=== PATIENT | female | born 1995 | race Caucasian/White ===

== ENCOUNTER 2021-08-07 17:00 | Emergency (ER) | payer OTHER ==
[~2021-08-07] VITALS: Ht 175.3 cm; Wt 86.2 kg
--- NOTE | 2021-08-07 18:20 | NUR ---
Pt was brought to room 5A and left before being seen. Pt stated "I have to get going". Pt was given referrals for rehab/detox centers as requested by pt.
== END 2021-08-07 18:22 | disposition left against medical advice (07) ==
LOC: ER 17:05
DX: Z53.21 Procedure and treatment not carried out due to patient leaving prior to being seen by health care provider (principal)

== ENCOUNTER 2023-10-08 21:36 | Emergency (ER) | payer OTHER ==
[~2023-10-08] VITALS: Ht 172.7 cm; Wt 76.7 kg
[2023-10-08] MEDS ORDERED: CLINDAMYCIN 900MG/D5W 100ML IVPB **ER PYXIS ONLY IJ ONE (22:20)
[2023-10-08] MEDS ORDERED: HYDROCODONE/APAP 10-325 MG TABLET ONE (22:21)
[2023-10-08] MEDS ORDERED: ONDANSETRON 4 MG/2 ML VIAL ONE (22:21)
[2023-10-08] MEDS: HYDROCODONE/APAP 10-325 MG TABLET PO ONE (22:25)
[2023-10-08] MEDS: ONDANSETRON 4 MG/2 ML VIAL IV ONE (22:35)
[2023-10-08] MEDS: CLINDAMYCIN PHOSPHATE IV 900 MG in IV DEXTROSE 5% 100 ML IV ONE (22:35)
[2023-10-08 22:44] LABS: BASOPHILS # (AUTO) 0.1 K/UL (0.0-0.2); BASOPHILS % (AUTO) 0.7 % (0.0-2.0); EOSINOPHILS # (AUTO) 0.2 K/uL (0.0-0.7); EOSINOPHILS % (AUTO) 3.2 % (0.0-7.0); HEMATOCRIT 28.3 % (31.2-41.9); HEMOGLOBIN 8.9 g/dL (10.9-14.3); LYMPHOCYTES # (AUTO) 1.7 K/uL (0.8-4.8); LYMPHOCYTES % (AUTO) 22.4 % (20.5-51.5); MEAN CORPUSCULAR HEMOGLOBIN 20.3 uug (24.7-32.8); MEAN CORPUSCULAR HGB CONC 31 g/dL (32.3-35.6); MEAN CORPUSCULAR VOLUME 64.6 fL (75.5-95.3); MONOCYTES # (AUTO) 0.6 K/uL (0.1-1.30); MONOCYTES % (AUTO) 8.3 % (0.0-11.0); NEUTROPHILS # (AUTO) 4.9 K/uL (1.8-8.9); NEUTROPHILS % (AUTO) 65.4 % (38.5-71.5); PLATELET COUNT (AUTO) 345 K/uL (179-408); RED BLOOD CELL COUNT(AUTO) 4.39 MIL/uL (3.63-4.92); RED CELL DISTRIBUTION WIDTH 20.6 % (12.3-17.7); WHITE BLOOD COUNT (AUTO) 7.5 K/uL (3.8-11.8)
[2023-10-08 22:49] LABS: DIFFERENTIAL COMMENT 1
[2023-10-08 22:58] LABS: CALCIUM 8.1 mg/dL (8.5-10.1); CREATININE 0.8 mg/dL (0.6-1.3); POTASSIUM 3.6 mmol/L (3.5-5.1)
[2023-10-08 23:04] LABS: ALBUMIN 3.5 g/dL (3.4-5.0); BILIRUBIN,DIRECT 0.1 mg/dL (0.0-0.2); BILIRUBIN,TOTAL 0.2 mg/dL (0.2-1.0); TOTAL PROTEIN, SERUM 7.2 g/dL (6.4-8.2)
[2023-10-08 23:09] LABS: PREGNANCY TEST SERUM QUAN < 1 miul/L (0-6)
[2023-10-08 23:10] LABS: NT-PRO BNP 64 pg/mL (0-125); URIC ACID 3.7 mg/dL (2.6-6.0)
[2023-10-08] MEDS ORDERED: HYDROMORPHONE 1 MG/1 ML DISP.SYRIN ONE (23:35)
[2023-10-08] MEDS: HYDROMORPHONE 1 MG/1 ML DISP.SYRIN IV ONE (23:35)
[2023-10-08] MEDS ORDERED: HYDR-3980 PO (23:36)
[2023-10-08] MEDS ORDERED: ONDA4TAB5 PO (23:36)
[2023-10-08] MEDS ORDERED: CLIN300C12 PO (23:36)
[2023-10-09 00:10] VITALS: BP 123/77; TEMP 97.7; O2SAT 99
== END 2023-10-08 23:45 | disposition home or self-care (01) ==
LOC: ER 21:41
DX: L03.116 Cellulitis of left lower limb (principal); R60.1 Generalized edema; R10.2 Pelvic and perineal pain; J45.909 Unspecified asthma, uncomplicated; F17.200 Nicotine dependence, unspecified, uncomplicated; Z79.899 Other long term (current) drug therapy
CPT/HCPCS: 99285; 93970; 96365; 96375; 80076; 80048; 83880; 84550; 85025; 85379; 87040 ×2; 84702; 36415; 73630; J3490 ×2; J2405; J1170; A4606; A4663

== ENCOUNTER 2023-10-13 12:49 | Emergency (ER) | payer OTHER ==
[~2023-10-13] VITALS: Ht 172.7 cm; Wt 68.0 kg
[~2023-10-13 12:49] MED LIST: CLIN300C12 PO; HYDR-3980 PO; ONDA4TAB5 PO
[2023-10-13] MEDS ORDERED: IBUP-1955 PO (13:09)
[2023-10-13] MEDS ORDERED: IBUPROFEN 600 MG TABLET ONE (13:11)
[2023-10-13] MEDS: IBUPROFEN 600 MG TABLET PO ONE (13:12)
[2023-10-13 14:17] VITALS: BP 127/68; O2SAT 99
== END 2023-10-13 14:19 | disposition home or self-care (01) ==
LOC: ER 12:49
DX: S83.8X2A Sprain of other specified parts of left knee, initial encounter (principal); R60.0 Localized edema; M25.572 Pain in left ankle and joints of left foot; J45.909 Unspecified asthma, uncomplicated; F17.210 Nicotine dependence, cigarettes, uncomplicated; Z79.899 Other long term (current) drug therapy; X58.XXXA Exposure to other specified factors, initial encounter; Y93.89 Activity, other specified; Y92.89 Other specified places as the place of occurrence of the external cause; Y99.8 Other external cause status
CPT/HCPCS: 73610; A4606; A4663